=== PATIENT | female | born 1990 | race African-American/Black ===

== ENCOUNTER 2025-05-27 20:25 | Emergency (ER) | payer MEDICAID ==
[~2025-05-27] VITALS: Ht 165.1 cm; Wt 77.0 kg
[2025-05-27 20:30] VITALS: O2SAT 100
[2025-05-27 21:29] LABS: PLATELET 300 x1000/uL (130-400); RED BLOOD CELL COUNT 4.31 mill/uL (4.2-5.4); RED CELL DISTRIBUTION WIDTH 15.2 % (11.6-14.6)
[2025-05-27 21:43] LABS: CREATININE 0.9 mg/dL (0.6-1.0); UREA NITROGEN BLOOD 7 mg/dL (9-23)
[2025-05-27 21:45] LABS: TROPONIN I HIGH SENSITIVITY < 4 ng/L (3.0-34)
[2025-05-27] MEDS ORDERED: FAMO-135 MT (22:59)
[2025-05-27] MEDS: MAGNESIUM/ALUMINUM HYDROXIDE/SIMETHICONE 30ML UDC PO ONE (23:09)
[2025-05-27] MEDS: FAMOTIDINE 20MG TABLET PO ONE (23:09)
[2025-05-27 23:16] VITALS: BP 101/66; PULSE 64; RESP 18; TEMP 36.9; O2SAT 99
== END 2025-05-27 23:20 | disposition home or self-care (01) ==
LOC: ER 20:25
DX: R07.9 Chest pain, unspecified (principal); K29.70 Gastritis, unspecified, without bleeding; J45.909 Unspecified asthma, uncomplicated; Z98.890 Other specified postprocedural states
CPT/HCPCS: 36415; 71045; 80048; 84484; 85027; 93005; 99285